=== PATIENT | male | born 1970 | race Two or more races ===

== ENCOUNTER 2023-03-20 16:13 | Emergency (ER) | payer OTHER ==
[~2023-03-20] VITALS: Ht 177.8 cm; Wt 81.6 kg
[2023-03-20] MEDS ORDERED: SIMVASTATIN5 MG PO (17:02)
== END 2023-03-20 19:28 | disposition home or self-care (01) ==
LOC: ER 16:13
DX: S61.412A Laceration without foreign body of left hand, initial encounter (principal); W26.0XXA Contact with knife, initial encounter; Y93.89 Activity, other specified; Y92.89 Other specified places as the place of occurrence of the external cause; Y99.9 Unspecified external cause status